=== PATIENT | male | born 1945 | race Caucasian/White ===

== ENCOUNTER 2016-11-24 09:25 | Emergency (ER) | payer MEDICARE, OTHER | END 2016-11-24 10:48 | disposition home or self-care (01) | DX: S61.211A Laceration without foreign body of left index finger without damage to nail, initial encounter (principal); W26.0XXA Contact with knife, initial encounter; Y92.019 Unspecified place in single-family (private) house as the place of occurrence of the external cause ==

== ENCOUNTER 2017-04-19 08:00 | Outpatient (CLI) | payer MEDICARE, OTHER ==
[2017-04-19 14:08] LABS: BASOPHILS % (AUTO) 0.6 %; EOSINOPHILS # (AUTO) 0.1 10^3/uL (0.0-0.7); EOSINOPHILS % (AUTO) 1.4 %; HCT - HEMATOCRIT 46.6 % (42.0-52.0); HGB - HEMOGLOBIN 15.8 g/dL (14.0-18.0); LYMPHOCYTES # (AUTO) 1.3 10^3/uL (1.5-3.5); LYMPHOCYTES % (AUTO) 25.4 %; MEAN CORPUSCULAR HEMOGLOBIN 31.9 pg (27.0-31.0); MEAN CORPUSCULAR HGB CONC 33.9 g/dL (32.0-36.0); MEAN CORPUSCULAR VOLUME 94.2 fL (80.0-94.0); MEAN PLATELET VOLUME 10.5 fL (7.4-11.4); MONOCYTES # (AUTO) 0.5 10^3/uL (0.0-1.0); NEUTROPHILS # (AUTO) 3.2 10^3/uL (1.5-6.6); NEUTROPHILS % (AUTO) 63.6 %; NUCLEATED RED BLOOD CELLS AUTO 0.1 /100WBC; RED BLOOD COUNT 4.95 10^6/uL (4.70-6.10); RED CELL DISTRIBUTION WIDTH 13.2 % (12.0-15.0)
[2017-04-19 14:22] LABS: HEMOGLOBIN A1C 0.67 g/dL
[2017-04-19 14:31] LABS: ALBUMIN/GLOBULIN RATIO 1.7 (1.0-2.2); BILIRUBIN,TOTAL 0.7 mg/dL (0.2-1.0); BUN - BLOOD UREA NITROGEN 16 mg/dL (6-20); CALCIUM 9.8 mg/dL (8.5-10.3); CARBON DIOXIDE - CO2 28 mmol/L (21-32); CHLORIDE 107 mmol/L (101-111); CHOL/HDL RATIO 4.5 (<5.0); CHOLESTEROL 178 mg/dL; GFR - MDRD 73 (>89); GLUCOSE 132 mg/dL (70-100); HDL CHOLESTEROL 40 mg/dL; LDL/HDL RATIO 2.5 (<3.6); SODIUM 139 mmol/L (135-145); TRIGLYCERIDES 185 mg/dL; URIC ACID 6.3 mg/dL (2.6-7.2); VLDL CHOLESTEROL 37 mg/dL
== END 2017-04-19 08:01 | disposition home or self-care (01) ==
LOC: LAB.N 08:00
PROVIDERS: ATTEND Internal Medicine
DX: R73.9 Hyperglycemia, unspecified (principal); I10 Essential (primary) hypertension; G62.9 Polyneuropathy, unspecified; M10.9 Gout, unspecified
CPT/HCPCS: 36415; 80053; 80061; 83036; 84550; 85025

== ENCOUNTER 2018-02-08 10:25 | Outpatient (CLI) | payer MEDICARE, OTHER ==
--- NOTE | 2018-02-08 10:38 | XRAY Report ---
Procedure Date: 02/08/2018 Accession Number: [id number] / [id number] Procedure: XR - Chest 2 View X-Ray CPT Code: 73161 FULL RESULT: EXAM: Chest 2 View X-Ray DATE: 02/08/2018 10:02 AM CLINICAL HISTORY: BACK PAIN COMPARISON: 03/27/2016 TECHNIQUE: 2 views. FINDINGS: Lungs/Pleura: The lungs remain hyperinflated, compatible with COPD. No focal consolidation, effusion, or pneumothorax. Mediastinum: Heart and mediastinal contours are unremarkable. Other: Rounded lucency posterior to the heart on the lateral view, which may represent a hiatal hernia. IMPRESSION: Stable hyperinflation. Possible hiatal hernia. RADIA
== END 2018-02-08 10:26 | disposition home or self-care (01) ==
LOC: DI 10:25
PROVIDERS: ATTEND Internal Medicine
DX: M54.9 Dorsalgia, unspecified (principal)
CPT/HCPCS: 71046

== ENCOUNTER 2018-05-18 07:49 | Outpatient (CLI) | payer MEDICARE, OTHER ==
[2018-05-18 12:52] LABS: HB2 TOTAL 16.7 g/dL; HEMOGLOBIN A1C 0.59 g/dL; HEMOGLOBIN A1C % 5.4 % (4.6-6.2)
[2018-05-18 12:58] LABS: ALBUMIN 3.7 g/dL (3.2-5.5); ALBUMIN/GLOBULIN RATIO 1.3 (1.0-2.2); BILIRUBIN,TOTAL 1.2 mg/dL (0.2-1.0); CALCIUM 9.5 mg/dL (8.5-10.3); CREATININE 0.9 mg/dL (0.6-1.2); TOTAL PROTEIN 6.6 g/dL (6.7-8.2); URIC ACID 6.6 mg/dL (2.6-7.2)
[2018-05-18 12:59] LABS: BASOPHILS % (AUTO) 0.7 %; EOSINOPHILS # (AUTO) 0.1 10^3/uL (0.0-0.7); HGB - HEMOGLOBIN 15.7 g/dL (14.0-18.0); LYMPHOCYTES # (AUTO) 1.4 10^3/uL (1.5-3.5); LYMPHOCYTES % (AUTO) 30.9 %; MEAN CORPUSCULAR HEMOGLOBIN 32.2 pg (27.0-31.0); MEAN CORPUSCULAR HGB CONC 33.9 g/dL (32.0-36.0); MEAN CORPUSCULAR VOLUME 95.1 fL (80.0-94.0); MEAN PLATELET VOLUME 10.4 fL (7.4-11.4); MONOCYTES # (AUTO) 0.4 10^3/uL (0.0-1.0); MONOCYTES % (AUTO) 9.4 %; NEUTROPHILS # (AUTO) 2.6 10^3/uL (1.5-6.6); PLT - PLATELET COUNT 173 10^3/uL (130-450); RED BLOOD COUNT 4.88 10^6/uL (4.70-6.10); RED CELL DISTRIBUTION WIDTH 13.2 % (12.0-15.0); WHITE BLOOD COUNT 4.6 x10^3/uL (4.8-10.8)
== END 2018-05-18 07:50 ==
LOC: LAB.N 07:49
PROVIDERS: ATTEND Internal Medicine
DX: R73.9 Hyperglycemia, unspecified (principal); Z12.5 Encounter for screening for malignant neoplasm of prostate; G62.9 Polyneuropathy, unspecified; I10 Essential (primary) hypertension; M10.9 Gout, unspecified
CPT/HCPCS: 36415; 80053; 83036; 84550; 85025; G0103; 84153

== ENCOUNTER 2019-04-05 08:00 | Outpatient (CLI) | payer MEDICARE, OTHER ==
[2019-04-05 12:29] LABS: ALBUMIN 4.1 g/dL (3.2-5.5); ALBUMIN/GLOBULIN RATIO 1.4 (1.0-2.2); ALKALINE PHOSPHATASE 59 IU/L (42-121); ALT ALANINE AMINOTRANSFERASE 34 IU/L (10-60); AST ASPARTATE AMINOTRANSFERASE 26 IU/L (10-42); BILIRUBIN,TOTAL 0.7 mg/dL (0.2-1.0); BUN - BLOOD UREA NITROGEN 13 mg/dL (6-20); CALCIUM 9.6 mg/dL (8.5-10.3); CARBON DIOXIDE - CO2 28 mmol/L (21-32); CHLORIDE 104 mmol/L (101-111); CHOL/HDL RATIO 4.3 (<5.0); CHOLESTEROL 186 mg/dL; CREATININE 0.9 mg/dL (0.6-1.2); GFR - MDRD 82 (>89); GLUCOSE 132 mg/dL (70-100); HDL CHOLESTEROL 43 mg/dL; LDL CHOLESTEROL,CALCULATED 116 mg/dL; LDL/HDL RATIO 2.7 (<3.6); SODIUM 139 mmol/L (135-145); TOTAL PROTEIN 7.1 g/dL (6.7-8.2); URIC ACID 6.5 mg/dL (2.6-7.2); VLDL CHOLESTEROL 27 mg/dL
[2019-04-05 12:32] LABS: BASOPHILS % (AUTO) 0.8 %; EOSINOPHILS # (AUTO) 0.1 10^3/uL (0.0-0.7); EOSINOPHILS % (AUTO) 1.8 %; HGB - HEMOGLOBIN 15.7 g/dL (14.0-18.0); LYMPHOCYTES # (AUTO) 1.2 10^3/uL (1.5-3.5); LYMPHOCYTES % (AUTO) 24.5 %; MEAN CORPUSCULAR HEMOGLOBIN 30.7 pg (27.0-31.0); MEAN CORPUSCULAR HGB CONC 32.1 g/dL (32.0-36.0); MEAN CORPUSCULAR VOLUME 95.7 fL (80.0-94.0); MEAN PLATELET VOLUME 11.9 fL (7.4-11.4); MONOCYTES # (AUTO) 0.4 10^3/uL (0.0-1.0); MONOCYTES % (AUTO) 8.2 %; NEUTROPHILS # (AUTO) 3.2 10^3/uL (1.5-6.6); NEUTROPHILS % (AUTO) 64.3 %; PLT - PLATELET COUNT 193 10^3/uL (130-450); RED BLOOD COUNT 5.11 10^6/uL (4.70-6.10); RED CELL DISTRIBUTION WIDTH 12.7 % (12.0-15.0)
== END 2019-04-05 23:59 | disposition home or self-care (01) ==
LOC: LAB.N 08:00
PROVIDERS: ATTEND Family Medicine
DX: I10 Essential (primary) hypertension (principal); M10.9 Gout, unspecified
CPT/HCPCS: 36415; 80053; 80061; 83721; 84443; 84550; 85025

== ENCOUNTER 2019-08-02 13:18 | Emergency (ER) | payer MEDICARE, OTHER ==
[2019-08-02 13:33] VITALS: BP 160/85
[2019-08-02] MEDS ORDERED: predniSONE 20 MG TABLET PO STA (13:56)
[2019-08-02] MEDS ORDERED: valACYclovir 500 MG TABLET PO STA (13:56)
[2019-08-02] MEDS ORDERED: prednisoLONE 1% OPHTH DROPS 75 DROPS/5 ML BOTTLE RIGHTEYE STA (13:57)
[2019-08-02] MEDS ORDERED: HYDROcod/ACET 5/325 Prepack 4 PO STA (14:08)
--- NOTE | 2019-08-02 14:08 | ED Physician Documentation ---
PD HPI SKIN - Stated complaint Stated Complaint: RASH ON FACE - Chief complaint Chief Complaint: Wound - History obtained from History obtained from: Patient (2 days of right facial swelling and pain making difficulties to sleep with mild visual deficit. Seen in the office and put on antibiotics, looks more like shingles today to them. No fevers.) Review of Systems Constitutional: reports: Myalgias, Fatigue. denies: Fever, Chills Nose: reports: Rhinorrhea / runny nose. denies: Congestion Throat: denies: Sore throat PD PAST MEDICAL HISTORY - Past Surgical History Past Surgical History: Yes General: Appendectomy - Present Medications Home Medications: Ambulatory Orders Medication Instructions Recorded Confirmed allopurinoL [Aloprim] 0 mg PO DAILY 11/24/16 11/24/16 Hydrocodone/Acetaminophen 1 - 2 each PO Q6H PRN #14 tablet 08/02/19 [Hydrocodon-Acetaminophen 5-325] Valacyclovir HCl [Valtrex] 1,000 mg PO TID #30 tablet 08/02/19 predniSONE [Deltasone] 20 mg PO [id number] #21 tab 08/02/19 prednisoLONE 1% OPHTH DROPS [Pred 1 drops OPTH BID #1 bottle 08/02/19 Forte 1% Ophth Drops] - Allergies Allergies/Adverse Reactions: Allergies Allergy/AdvReac Type Severity Reaction Status Date / Time morphine Allergy Unknown Verified 08/02/19 13:34 - Social History Does the pt smoke?: No Smoking Status: Never smoker Does the pt have substance abuse?: No - Immunizations Immunizations are current?: Yes PD ED PE NORMAL - Vitals Vital signs reviewed: Yes - General General: Alert and oriented X 3, No acute distress - HEENT HEENT: Other (He has shingles across the right forehead with a small amount of fluorescein uptake superiorly in the right eye.) - Neck Neck: Supple, no meningeal sign, No bony TTP - Neuro Neuro: Alert and oriented X 3, Normal speech Results - Vitals Vitals: Vital Signs - 24 hr 08/02/19 13:30 Temperature 36.9 C Heart Rate 84 Respiratory 16 Rate Blood Pressure 160/85 H O2 Saturation 95 Oxygen O2 Source Room air PD MEDICAL DECISION MAKING - ED course ED course: He has herpes zoster ophthalmicus, the timing with today being [place] may make follow-up difficult. It looks like [facility] has hours tomorrow. Dr. Velazquez does not. Departure - Departure Disposition: 01 Home, Self Care Clinical Impression: Herpes zoster ophthalmicus of right eye Condition: Good Record reviewed to determine appropriate education?: Yes Instructions: ED Shingles Prescriptions: Hydrocodone/Acetaminophen [Hydrocodon-Acetaminophen 5-325] 1 - 2 each PO Q6H PRN #14 tablet PRN Reason: pain prednisoLONE 1% OPHTH DROPS [Pred Forte 1% Ophth Drops] 1 drops OPTH BID #1 bottle predniSONE [Deltasone] 20 mg PO [id number] #21 tab Valacyclovir HCl [Valtrex] 1,000 mg PO TID #30 tablet Comments: You should follow-up with an paper folder within 48 hours, one option would be [facility], they have an office [facility]. The phone number is [phone], their main office is in [place], the phone number is [phone]. Return immediately for worsening vision.
== END 2019-08-02 14:36 | disposition home or self-care (01) ==
LOC: ED 13:18
DX: B02.30 Zoster ocular disease, unspecified (principal)
CPT/HCPCS: 99282; 99284; A9270; J7512

== ENCOUNTER 2020-07-19 07:00 | Outpatient (CLI) | payer MEDICARE, OTHER ==
[2020-07-19 12:54] LABS: BASOPHILS % (AUTO) 0.5 %; EOSINOPHILS # (AUTO) 0.1 10^3/uL (0.0-0.7); EOSINOPHILS % (AUTO) 1.4 %; HGB - HEMOGLOBIN 16.3 g/dL (14.0-18.0); LYMPHOCYTES # (AUTO) 1.6 10^3/uL (1.5-3.5); LYMPHOCYTES % (AUTO) 27.7 %; MEAN CORPUSCULAR HEMOGLOBIN 31.5 pg (27.0-31.0); MEAN CORPUSCULAR HGB CONC 32.3 g/dL (32.0-36.0); MEAN CORPUSCULAR VOLUME 97.7 fL (80.0-94.0); MEAN PLATELET VOLUME 12.4 fL (7.4-11.4); MONOCYTES # (AUTO) 0.4 10^3/uL (0.0-1.0); MONOCYTES % (AUTO) 7.6 %; NEUTROPHILS # (AUTO) 3.6 10^3/uL (1.5-6.6); NEUTROPHILS % (AUTO) 62.5 %; PLT - PLATELET COUNT 198 10^3/uL (130-450); RED BLOOD COUNT 5.17 10^6/uL (4.70-6.10); RED CELL DISTRIBUTION WIDTH 12.6 % (12.0-15.0); WHITE BLOOD COUNT 5.8 x10^3/uL (4.8-10.8)
[2020-07-19 13:27] LABS: ALBUMIN 4.3 g/dL (3.2-5.5); ALBUMIN/GLOBULIN RATIO 1.4 (1.0-2.2); ALKALINE PHOSPHATASE 62 IU/L (42-121); ALT ALANINE AMINOTRANSFERASE 31 IU/L (10-60); AST ASPARTATE AMINOTRANSFERASE 24 IU/L (10-42); BILIRUBIN,TOTAL 1.1 mg/dL (0.2-1.0); BUN - BLOOD UREA NITROGEN 18 mg/dL (6-20); CALCIUM 10.1 mg/dL (8.5-10.3); CARBON DIOXIDE - CO2 25 mmol/L (21-32); CHLORIDE 106 mmol/L (101-111); CHOL/HDL RATIO 4.9 (<5.0); CHOLESTEROL 196 mg/dL; CREATININE 0.8 mg/dL (0.6-1.2); GLUCOSE 129 mg/dL (70-100); HDL CHOLESTEROL 40 mg/dL; LDL CHOLESTEROL,CALCULATED 110 mg/dL; LDL/HDL RATIO 2.8 (<3.6); SODIUM 142 mmol/L (135-145); TOTAL PROTEIN 7.3 g/dL (6.7-8.2); URIC ACID 6.3 mg/dL (2.6-7.2); VLDL CHOLESTEROL 46 mg/dL
[2020-07-19 13:37] LABS: HEMOGLOBIN A1c% 5.4 % (4.27-6.07)
== END 2020-07-19 23:59 | disposition home or self-care (01) ==
LOC: LAB.WCP 07:00
PROVIDERS: ATTEND Family Medicine
DX: I10 Essential (primary) hypertension (principal); M62.81 Muscle weakness (generalized); R27.9 Unspecified lack of coordination; R73.9 Hyperglycemia, unspecified; G62.9 Polyneuropathy, unspecified; K21.9 Gastro-esophageal reflux disease without esophagitis; M10.9 Gout, unspecified
CPT/HCPCS: 36415; 80053; 80061; 83036; 83721; 84550; 85025

== ENCOUNTER 2020-08-06 10:14 | Outpatient (CLI) | payer MEDICARE, OTHER ==
--- NOTE | 2020-08-06 14:49 | MRI Report ---
PROCEDURE: Lumbar Spine W/O INDICATIONS: BALANCE PROBLEM TECHNIQUE: Noncontrast sagittal T1 spin echo and T2 fast echo, sagittal STIR, axial T1 and T2 fast spin echo thr ough the lumbar spine. In cases with scoliosis, additional coronal T2 fast spin echo may be performe d. COMPARISON: None. FINDINGS: Image quality: Excellent. Alignment and Curvature: No plain films are available for comparison. Thus, for numbering purposes, 5 lumbar type vertebral bodies will be presumed for the current report. This should be confirmed with plain film correlation prior to any lumbar spinal intervention. Minimal grade 1 retrolisthesis of L2 on L3 and L3 on L4. . Bone Marrow: Marrow is of normal overall signal. No acute vertebral body compression fractures. Mo derate reactive signal within the end plates adjacent to the L4-L5 intervertebral disc. Mild reactive signal within the endplates adjacent to the L1-L2, L2-L3, L3-L4, and L5-S1 intervertebral discs. Spinal Cord: Conus medullaris terminates at the mid L1 level. Visualized cord demonstrates normal s ignal and size. Paraspinous Soft Tissues: No paravertebral masses. T12-L1: Moderate disc desiccation. No significant canal, nor foraminal stenosis. L1-L2: Moderate disc height loss and desiccation. Mild diffuse disc bulge. Mild bilateral facet hy pertrophy. No significant canal, nor foraminal stenosis. L2-L3: Moderate disc height loss and desiccation. Mild diffuse disc bulge. Mild facet and ligament flavum hypertrophy. Mild canal stenosis. Mild bilateral foraminal stenosis. L3-L4: Mild disc height loss. Moderate disc desiccation. Mild diffuse disc bulge. Mild facet and li gament flavum hypertrophy. Mild epidural lipomatosis. Mild canal stenosis. Moderate bilateral foramin al stenosis. L4-L5: Moderate disc height loss and desiccation. Mild diffuse disc bulge. Mild facet and ligament flavum hypertrophy. Mild canal stenosis. Moderate left and severe right foraminal stenosis. Right L4 nerve root compression. L5-S1: Severe disc height loss and desiccation. Mild diffuse disc bulge. Mild facet and ligament fl avum hypertrophy. Mild canal stenosis. Moderate right and mild left foraminal stenosis. IMPRESSION: 1. Multilevel degenerative disc and facet disease, in addition to epidural lipomatosis and ligamentum flavum hypertrophy. 2. Mild multilevel canal stenoses. 3. Multilevel foraminal stenoses, worst at L4-L5 where there is associated intraforaminal nerve root compression. Recommend correlation with clinical symptoms to ascertain relevance of this finding. Reviewed by: Isadora Crowell MD on 08/06/2020 2:48 PM PST Approved by: Isadora Crowell MD on 08/06/2020 2:48 PM PST Station ID: [id number]
== END 2020-08-06 10:15 | disposition home or self-care (01) ==
LOC: DI 10:14
PROVIDERS: ATTEND Family Medicine
DX: E88.2 Lipomatosis, not elsewhere classified (principal); M47.816 Spondylosis without myelopathy or radiculopathy, lumbar region; M47.817 Spondylosis without myelopathy or radiculopathy, lumbosacral region; M51.36 Other intervertebral disc degeneration, lumbar region; M48.061 Spinal stenosis, lumbar region without neurogenic claudication; M51.37 Other intervertebral disc degeneration, lumbosacral region; M48.07 Spinal stenosis, lumbosacral region
CPT/HCPCS: 72148

== ENCOUNTER 2020-09-17 08:00 | Outpatient (CLI) | payer MEDICARE, OTHER ==
[2020-09-17 19:06] LABS: CRP - C-REACTIVE PROTEIN 4.2 mg/dL (0-1.0)
[2020-09-19 09:41] LABS: ANA SCREEN NEGATIVE (NEGATIVE)
== END 2020-09-17 23:59 | disposition home or self-care (01) ==
LOC: LAB.WCP 08:00
PROVIDERS: ATTEND Physical Medicine & Rehabilitation
DX: R53.1 Weakness (principal)
CPT/HCPCS: 36415; 81599; 82550; 85651; 86038; 86140

== ENCOUNTER 2020-10-03 17:15 | Outpatient (CLI) | payer MEDICARE, OTHER ==
--- NOTE | 2020-10-04 08:39 | MRI Report ---
PROCEDURE: Brain W/O INDICATIONS: Bilateral lower extremity weakness TECHNIQUE: Noncontrast axial T1 spin echo, axial T2 fast spin echo, sagittal and axial FLAIR, coronal T2 fast sp in echo, axial gradient echo, axial diffusion and ADC through the brain. COMPARISON: None. FINDINGS: Image quality: Excellent. CSF Spaces: Basal cisterns are patent. No extra-axial fluid collections. Ventricles are normal in size and shape. Brain: Advanced global cerebral volume loss and moderate to severe chronic microvascular ischemic jahaira nges. No evidence of vasogenic edema. No restricted diffusion or abnormal intracranial susceptibility . The major intracranial vascular flow-related signal voids are maintained. Midline structures are no rmal in configuration. Skull and face: Calvarium has normal marrow signal. Orbits appear normal. Sinuses: Centered in the left posterior ethmoid air cells there is an approximately 1.7 x 1.9 cm lesi on which most likely represents either a mucous retention cyst or mucocele, although this is not enti rely definitive. IMPRESSION: No acute intracranial finding. Advanced global cerebral volume loss and [id number] chronic vascular ischemic changes. Indeterminate lesion in the left posterior ethmoid air cells, likely mucocele or mucous retention cys t although further evaluation with CT sinuses is recommended. Reviewed by: Nolan Medina MD on 10/04/2020 8:38 AM [facility] Approved by: Nolan Medina MD on 10/04/2020 8:38 AM PST Station ID: [id number]
--- NOTE | 2020-10-04 11:33 | MRI Report ---
PROCEDURE: Cervical Spine W/O INDICATIONS: Bilateral lower extremity weakness TECHNIQUE: Noncontrast sagittal T1 spin echo and T2 fast spin echo, sagittal STIR, foraminal oblique sagittal T2 fast spin echo, and axial gradient echo or T2 fast spin echo through the cervical spine. COMPARISON: None. FINDINGS: Image quality: Excellent. Alignment and Curvature: Normal cervical spine vertebral body height and alignment. Bone Marrow: Modic type II degenerative endplate change at C6-C7. Otherwise normal marrow signal inte nsity. Spinal Cord: Visualized spinal cord has normal size and signal. No cerebellar tonsillar herniation. Paraspinous Soft Tissues: No paravertebral masses. Prevertebral soft tissues are normal in thicknes s. C2-C3: No spinal canal or neural foraminal stenosis. There is mild uncovertebral spurring and facet hypertrophy on the left. C3-C4: No spinal canal stenosis. Facet and uncovertebral hypertrophy contribute to mild neural fora jose narrowing on the left. C4-C5: No spinal canal stenosis. Facet and uncovertebral hypertrophy contribute to moderate left and mild right neural foraminal stenosis. C5-C6: No spinal canal stenosis. Facet and uncovertebral hypertrophy contribute to severe left and m ild right neural foraminal narrowing. C6-C7: No spinal canal stenosis. Facet and uncovertebral hypertrophy contribute to severe left and m oderate right neural foraminal stenosis. C7-T1: No spinal canal stenosis. Facet and uncovertebral hypertrophic degenerative moderate neural f oraminal narrowing on the left. IMPRESSION: Varying degrees of neural foraminal stenosis from C3-C4 through C7-T1, worst on the left at each leve l, severe on the left at both C5-C6 and C6-C7. Reviewed by: Nolan Medina MD on 10/04/2020 11:32 AM PST Approved by: Nolan Medina MD on 10/04/2020 11:32 AM PST Station ID: [id number]
--- NOTE | 2020-10-04 13:08 | MRI Report ---
PROCEDURE: Thoracic Spine W/O INDICATIONS: Bilateral lower extremity weakness TECHNIQUE: Noncontrast sagittal T1 spine echo and T2 fast spin echo, sagittal STIR, axial T1 and T2 fast spin ec ho through the thoracic spine. COMPARISON: 05/10/2013 MRI thoracic spine FINDINGS: Image quality: Excellent. Alignment and Curvature: There is normal bony alignment. Vertebral body heights are maintained. Bone Marrow: No suspicious focal marrow signal abnormality or significant bone marrow edema. Spinal Cord: Visualized spinal cord is normal in size and signal. Regional Soft Tissues: No paravertebral masses. Miscellaneous: On axial images, central canal and foramina appear widely patent at all scanned level s. IMPRESSION: No important degenerative change or other significant abnormality. Reviewed by: Nolan Medina MD on 10/04/2020 1:07 PM PST Approved by: Nolan Medina MD on 10/04/2020 1:07 PM [facility] Station ID: [id number]
== END 2020-10-03 17:16 | disposition home or self-care (01) ==
LOC: DI 17:15
PROVIDERS: ATTEND Physical Medicine & Rehabilitation
DX: R29.898 Other symptoms and signs involving the musculoskeletal system (principal); M48.02 Spinal stenosis, cervical region

== ENCOUNTER 2020-10-21 07:00 | Outpatient (CLI) | payer MEDICARE, OTHER ==
[2020-10-21 19:00] LABS: THYROID STIMULATING HORMONE 3.38 uIU/mL (0.34-5.60)
[2020-10-21 19:01] LABS: FREE T3 3.05 pg/mL (2.5-3.9)
[2020-10-21 19:02] LABS: FREE T4 (FREE THYROXINE) 0.84 ng/dL (0.58-1.64)
== END 2020-10-21 23:59 | disposition home or self-care (01) ==
LOC: LAB.WCP 07:00
PROVIDERS: ATTEND Family Medicine
DX: M62.81 Muscle weakness (generalized) (principal)
CPT/HCPCS: 36415; 84439; 84443; 84481

== ENCOUNTER 2021-06-20 08:00 | Outpatient (CLI) | payer MEDICARE, OTHER ==
[2021-06-20 12:27] LABS: BASOPHILS % (AUTO) 0.5 %; EOSINOPHILS # (AUTO) 0.1 10^3/uL (0.0-0.7); EOSINOPHILS % (AUTO) 0.6 %; HCT - HEMATOCRIT 49.3 % (42.0-52.0); HGB - HEMOGLOBIN 16.1 g/dL (14.0-18.0); LYMPHOCYTES # (AUTO) 1.3 10^3/uL (1.5-3.5); LYMPHOCYTES % (AUTO) 14.5 %; MEAN CORPUSCULAR HEMOGLOBIN 31.1 pg (27.0-31.0); MEAN CORPUSCULAR HGB CONC 32.7 g/dL (32.0-36.0); MEAN CORPUSCULAR VOLUME 95.2 fL (80.0-94.0); MEAN PLATELET VOLUME 12.3 fL (7.4-11.4); MONOCYTES # (AUTO) 0.8 10^3/uL (0.0-1.0); MONOCYTES % (AUTO) 8.8 %; NEUTROPHILS # (AUTO) 6.5 10^3/uL (1.5-6.6); NEUTROPHILS % (AUTO) 75.3 %; PLT - PLATELET COUNT 190 10^3/uL (130-450); RED BLOOD COUNT 5.18 10^6/uL (4.70-6.10); RED CELL DISTRIBUTION WIDTH 13.1 % (12.0-15.0); WHITE BLOOD COUNT 8.7 x10^3/uL (4.8-10.8)
== END 2021-06-20 23:59 | disposition home or self-care (01) ==
LOC: LAB.N 08:00
PROVIDERS: ATTEND Physician Assistant Medical
DX: K92.1 Melena (principal)
CPT/HCPCS: 36415; 85025

== ENCOUNTER 2021-07-30 12:24 | Day surgery (SDC) | payer MEDICARE, OTHER ==
[2021-07-30] MEDS ORDERED: PROPOFOL 500 MG/50 ML 500 MG/50 ML VIAL ONE (12:51)
[2021-07-30] MEDS ORDERED: LACTATED RINGERS 1,000 ML IV ONE (13:09)
--- NOTE | 2021-07-30 13:43 | ANESTHESIA ---
Pre-Anesthesia VS, & Labs - Diagnosis screening - Procedure colonoscopy Vital Signs: Temp Pulse Resp BP Pulse Ox 36 C L 84 17 147/93 H 99 07/30/21 12:39 07/30/21 12:39 07/30/21 12:39 07/30/21 12:39 07/30/21 12:39 Height: 6 ft 2 in Weight (kg): 101 kg Body Mass Index: 28.5 BMI Classification: Overweight - NPO >8 hours - Lab Results Lab results reviewed: Yes Home Medications and Allergies Home Medications: Ambulatory Orders Amlodipine Besylate [Norvasc] 2.5 mg PO DAILY 07/29/21 Losartan [Cozaar] 50 mg PO DAILY 07/29/21 allopurinoL [Allopurinol] 150 mg PO DAILY 07/29/21 Amlodipine Besylate [Norvasc] 2.5 mg PO DAILY 07/29/21 Losartan [Cozaar] 50 mg PO DAILY 07/29/21 allopurinoL [Allopurinol] 150 mg PO DAILY 07/29/21 Allergies/Adverse Reactions: Allergies Allergy/AdvReac Type Severity Reaction Status Date / Time morphine Allergy Unknown Verified 08/02/19 13:34 Anes History & Medical History - Anesthetic History Anesthesia Complications: reports: No previous complications Family history of Anesthesia Complications: Denies Family history of Malignant Hyperthermia: Denies - Medical History Cardiovascular: reports: Hypertension Pulmonary: reports: None Gastrointestinal: reports: GERD, Colon polyps, Other Urinary: reports: Benign prostate hypertrophy Musculoskeletal: reports: Osteoarthritis Endocrine/Autoimmune: reports: None Skin: reports: None Smoking Status: Never smoker - Surgical History General: reports: Appendectomy, Colonoscopy Orthopedic: reports: Arthroscopic surgery Exam General: Alert, Oriented x3, Cooperative, No acute distress Dental: WNL Mouth Openin Fingerbreadth Neck Mobility: Normal Mallampati classification: II Respiratory: Lungs clear, Normal breath sounds, No respiratory distress, No accessory muscle use Cardiovascular: Regular rate, Normal S1, Normal S2, No murmurs Plan Anesthesia Type: General, Total IV Consent for Procedure(s) Verified and Reviewed: Yes Code Status: Attempt Resuscitation ASA classification: 2-Mild systemic disease Is this case an emergency?: No
[2021-07-30] MEDS ORDERED: LACTATED RINGERS 500 ML IV ONE (14:24)
[2021-07-30 14:47] VITALS: BP 139/72
--- NOTE | 2021-07-30 18:16 | ANESTHESIA POST OP EVALUATION ---
Anesthesia Post Eval - Post Anesthesia Eval Vitals: Last Vital Signs Temp 36.2 C L 07/30/21 14:46 Pulse 51 L 07/30/21 14:46 Resp 18 07/30/21 14:46 BP 139/72 H 07/30/21 14:46 Pulse Ox 98 07/30/21 14:46 CV Function Including HR & BP: Stable Pain Control: Satisfactory Nausea & Vomiting: Negative Mental Status: Baseline Respiratory Status: Airway Patent Hydration Status: Satisfactory Anesthesia Complications: None
== END 2021-07-30 12:25 | disposition home or self-care (01) ==
LOC: SDS 12:24
PROVIDERS: ATTEND Surgery
DX: Z12.11 Encounter for screening for malignant neoplasm of colon (principal); K57.30 Diverticulosis of large intestine without perforation or abscess without bleeding; Z86.010 Personal history of colon polyps; N40.0 Benign prostatic hyperplasia without lower urinary tract symptoms; R27.9 Unspecified lack of coordination
CPT/HCPCS: G0105; J7120

== ENCOUNTER 2021-09-17 15:45 | Emergency (ER) | payer MEDICARE, OTHER ==
--- NOTE | 2021-09-17 16:39 | Ultrasound Report ---
PROCEDURE: Duplex Ext Veins Left INDICATIONS: swellign in calf; hx of varicose vein; r/o DVT TECHNIQUE: Real-time imaging, as well as color and pulse Doppler interrogation, were performed of the lower extr emity deep veins from the inguinal ligament to the popliteal fossa. COMPARISON: None. FINDINGS: The deep veins are normally compressible, and free of intraluminal thrombus. Color and pu lse Doppler demonstrate normal phasic intraluminal flow. There is normal augmentation response to di stal compression maneuver. IMPRESSION: No evidence of DVT in visualized left lower extremity veins. Left calf edema. Reviewed by: Diego Rivero MD on 09/17/2021 4:38 PM PST Approved by: Diego Rivero MD on 09/17/2021 4:38 PM PST Station ID: [id number]
--- NOTE | 2021-09-17 16:45 | ED Physician Documentation ---
History of Present Illness - Stated complaint Stated Complaint: LT CALF SWOLLEN - Chief complaint Chief Complaint: Ext Problem - Additonal information Additional information: 76-year-old male presents emergency department for evaluation of 2 days left lower leg swelling. He does have significant varicose veins. No recent surgeries or immobilizations. He is not anticoagulated. No history of unilateral leg swelling. No history of congestive heart failure. Review of Systems Constitutional: reports: Reviewed and negative Ears: reports: Reviewed and negative Nose: reports: Reviewed and negative Cardiac: reports: Reviewed and negative Respiratory: reports: Reviewed and negative Skin: reports: Reviewed and negative Musculoskeletal: reports: Extremity swelling Neurologic: reports: Reviewed and negative PD PAST MEDICAL HISTORY - Past Medical History Cardiovascular: Hypertension Respiratory: None Endocrine/Autoimmune: None GI: GERD, Colon polyps, Other : Benign prostate hypertrophy HEENT: Chronic vision loss, Chronic hearing loss Psych: None Musculoskeletal: Osteoarthritis Derm: None - Past Surgical History Past Surgical History: Yes General: Appendectomy, Colonoscopy Ortho: Arthroscopic surgery - Present Medications Home Medications: Ambulatory Orders Medication Instructions Recorded Confirmed Amlodipine Besylate [Norvasc] 2.5 mg PO DAILY 07/29/21 07/29/21 Losartan [Cozaar] 50 mg PO DAILY 07/29/21 07/29/21 allopurinoL [Allopurinol] 150 mg PO DAILY 07/29/21 07/29/21 - Allergies Allergies/Adverse Reactions: Allergies Allergy/AdvReac Type Severity Reaction Status Date / Time morphine Allergy Unknown Verified 09/17/21 15:59 - Social History Does the pt smoke?: No Smoking Status: Never smoker Does the pt have substance abuse?: No - Immunizations Immunizations are current?: Yes PD ED PE EXPANDED - General General: Alert, No acute distress, Well developed/nourished - Cardiac Cardiac: Regular Rate, Radial strong equal, Pedal strong equal. No: Murmur Present - Respiratory Respiratory: Clear to ausultation chiquita. No: Distress, Labored - Abdomen Abdomen: Normal Bowel sounds. No: Tender to palpation - Extremities Extremities: Pedal edema L, Pedal Pulses Present, Other (Mild nonpitting edema noted to the left lower leg. Both legs have peripheral vascular disease and hemosiderin staining. 2+ DP pulse bilaterally. No posterior calf pain tenderness elicited.). No: Deformity, Tenderness, Right calf TTP/cord, Left calf TTP/cord Results - Vitals Vitals: Vital Signs - 24 hr 09/17/21 15:53 Temperature 36.1 C L Heart Rate 72 Respiratory 16 Rate Blood Pressure 170/87 H O2 Saturation 96 Oxygen O2 Source Room air PD MEDICAL DECISION MAKING - ED course Complexity details: reviewed results, considered differential, d/w patient ED course: Well-appearing 76-year-old male presents emergency department for evaluation of 2 days left lower leg swelling. There is no calf pain. No history of DVT or cancer. Not anticoagulated. Ultrasound was negative for deep vein thrombosis. This gentleman does have evidence of peripheral vascular disease as evidenced by hemosiderin staining. He also has a history of hypertension. In addition to this her significant varicose veins on both extremities. I suspect the cause of his legs swelling and edema is peripheral vascular disease and varicose veins. I did recommend that he wear medical grade stockings and elevate the leg at night. Follow-up closely with PCP. May benefit from initiation of low-dose diuretic and/or echocardiogram. Emergent return precautions otherwise discussed. Departure - Departure Disposition: 01 Home, Self Care Clinical Impression: Swelling of left lower extremity, PVD (peripheral vascular disease), Varicose veins of both legs with edema Condition: Stable Record reviewed to determine appropriate education?: Yes Instructions: ED PVD Follow-Up: Edmar Wiley MD [Provider Admit Priv/Credential] - Comments: You are seen today in the emergency department for swelling in the left lower leg. The ultrasound did not show a deep vein thrombus. As we discussed at the bedside the cause of your swelling is most likely peripheral vascular disease and the varicose veins. I do recommend that you wear medical grade compressive stockings when out of bed during the day and elevate your leg as much as you can at night. You would benefit from seeing Dr. Penn. He may want to consider starting you on a low-dose of water pill. He may also want to consider referring you for an outpatient echocardiogram however your heart and lungs sound normal.
[2021-09-17 16:51] VITALS: BP 154/87
== END 2021-09-17 16:51 | disposition home or self-care (01) ==
LOC: ED 15:45
DX: I83.893 Varicose veins of bilateral lower extremities with other complications (principal); R60.0 Localized edema; I73.9 Peripheral vascular disease, unspecified; I10 Essential (primary) hypertension
CPT/HCPCS: 99282; 99284

== ENCOUNTER 2022-09-17 07:15 | Outpatient (CLI) | payer MEDICARE, OTHER ==
[2022-09-17 11:44] LABS: BASOPHILS # (AUTO) 0.1 10^3/uL (0.0-0.1); BASOPHILS % (AUTO) 0.9 %; EOSINOPHILS # (AUTO) 0.2 10^3/uL (0.0-0.7); EOSINOPHILS % (AUTO) 3.1 %; HCT - HEMATOCRIT 49.1 % (42.0-52.0); HGB - HEMOGLOBIN 15.8 g/dL (14.0-18.0); LYMPHOCYTES # (AUTO) 1.4 10^3/uL (1.5-3.5); LYMPHOCYTES % (AUTO) 24.4 %; MEAN CORPUSCULAR HGB CONC 32.2 g/dL (32.0-36.0); MEAN CORPUSCULAR VOLUME 96.3 fL (80.0-94.0); MEAN PLATELET VOLUME 11.7 fL (7.4-11.4); MONOCYTES # (AUTO) 0.5 10^3/uL (0.0-1.0); NEUTROPHILS # (AUTO) 3.6 10^3/uL (1.5-6.6); NEUTROPHILS % (AUTO) 63.1 %; PLT - PLATELET COUNT 243 10^3/uL (130-450); WHITE BLOOD COUNT 5.8 x10^3/uL (4.8-10.8)
[2022-09-17 12:31] LABS: THYROID STIMULATING HORMONE 5.78 uIU/mL (0.34-5.60)
[2022-09-17 12:35] LABS: ALBUMIN 4.1 g/dL (3.2-5.5); ALBUMIN/GLOBULIN RATIO 1.3 (1.0-2.2); ALKALINE PHOSPHATASE 69 IU/L (42-121); ALT ALANINE AMINOTRANSFERASE 29 IU/L (10-60); AST ASPARTATE AMINOTRANSFERASE 24 IU/L (10-42); BILIRUBIN,TOTAL 0.9 mg/dL (0.2-1.0); BUN - BLOOD UREA NITROGEN 18 mg/dL (6-20); CARBON DIOXIDE - CO2 27 mmol/L (21-32); CHLORIDE 107 mmol/L (101-111); CHOL/HDL RATIO 4.4 (<5.0); CHOLESTEROL 181 mg/dL; CREATININE 0.9 mg/dL (0.6-1.2); GFR - MDRD 82 (>89); GLUCOSE 151 mg/dL (70-100); HDL CHOLESTEROL 41 mg/dL; LDL CHOLESTEROL,CALCULATED 112 mg/dL; LDL/HDL RATIO 2.7 (<3.6); POTASSIUM 4.3 mmol/L (3.5-5.0); SODIUM 142 mmol/L (135-145); TOTAL PROTEIN 7.3 g/dL (6.7-8.2); TRIGLYCERIDES 142 mg/dL; VLDL CHOLESTEROL 28 mg/dL
[2022-09-17 13:02] LABS: ESTIMATED AVERAGE GLUCOSE 126 mg/dL (70-100)
[2022-09-17 13:03] LABS: FREE T4 (FREE THYROXINE) 0.72 ng/dL (0.58-1.64)
== END 2022-09-17 07:16 | disposition home or self-care (01) ==
LOC: LAB.N 07:15
PROVIDERS: ATTEND Family Medicine
DX: I10 Essential (primary) hypertension (principal); N40.0 Benign prostatic hyperplasia without lower urinary tract symptoms; I83.10 Varicose veins of unspecified lower extremity with inflammation; M62.81 Muscle weakness (generalized); M48.061 Spinal stenosis, lumbar region without neurogenic claudication; R20.8 Other disturbances of skin sensation; K21.9 Gastro-esophageal reflux disease without esophagitis; R73.9 Hyperglycemia, unspecified
CPT/HCPCS: 36415; 80053; 80061; 83036; 83721; 84153; 84439; 84443; 85025

== ENCOUNTER 2023-09-09 07:47 | Outpatient (CLI) | payer MEDICARE, OTHER ==
[2023-09-09 12:11] LABS: ESTIMATED AVERAGE GLUCOSE 123 mg/dL (70-100); HEMOGLOBIN A1c% 5.9 % (4.27-6.07)
[2023-09-09 12:17] LABS: BASOPHILS % (AUTO) 0.6 %; EOSINOPHILS # (AUTO) 0.1 10^3/uL (0.0-0.7); EOSINOPHILS % (AUTO) 2.6 %; HCT - HEMATOCRIT 49.5 % (42.0-52.0); HGB - HEMOGLOBIN 15.9 g/dL (14.0-18.0); LYMPHOCYTES # (AUTO) 1.2 10^3/uL (1.5-3.5); LYMPHOCYTES % (AUTO) 23.7 %; MEAN CORPUSCULAR HEMOGLOBIN 31.1 pg (27.0-31.0); MEAN CORPUSCULAR HGB CONC 32.1 g/dL (32.0-36.0); MEAN CORPUSCULAR VOLUME 96.9 fL (80.0-94.0); MEAN PLATELET VOLUME 12.3 fL (7.4-11.4); MONOCYTES # (AUTO) 0.4 10^3/uL (0.0-1.0); NEUTROPHILS # (AUTO) 3.2 10^3/uL (1.5-6.6); NEUTROPHILS % (AUTO) 64.7 %; PLT - PLATELET COUNT 200 10^3/uL (130-450); RED BLOOD COUNT 5.11 10^6/uL (4.70-6.10); RED CELL DISTRIBUTION WIDTH 13.2 % (12.0-15.0)
[2023-09-09 12:32] LABS: ALBUMIN 4.2 g/dL (3.2-5.5); ALBUMIN/GLOBULIN RATIO 1.7 (1.0-2.2); ALKALINE PHOSPHATASE 60 IU/L (42-121); ALT ALANINE AMINOTRANSFERASE 30 IU/L (10-60); AST ASPARTATE AMINOTRANSFERASE 25 IU/L (10-42); BILIRUBIN,TOTAL 0.7 mg/dL (0.2-1.0); BUN - BLOOD UREA NITROGEN 19 mg/dL (6-20); CARBON DIOXIDE - CO2 29 mmol/L (21-32); CHLORIDE 108 mmol/L (101-111); CHOL/HDL RATIO 4.3 (<5.0); CHOLESTEROL 182 mg/dL; CREATININE 0.9 mg/dL (0.6-1.3); GFR - MDRD 81 (>89); GLUCOSE 137 mg/dL (74-104); HDL CHOLESTEROL 42 mg/dL; LDL CHOLESTEROL,CALCULATED 102 mg/dL; LDL/HDL RATIO 2.4 (<3.6); POTASSIUM 4.3 mmol/L (3.5-4.5); SODIUM 141 mmol/L (135-145); TOTAL PROTEIN 6.7 g/dL (6.4-8.9); TRIGLYCERIDES 190 mg/dL (48-352); URIC ACID 6.6 mg/dL (4.4-7.6); VLDL CHOLESTEROL 38 mg/dL
[2023-09-09 12:43] LABS: THYROID STIMULATING HORMONE 3.96 uIU/mL (0.34-5.60)
== END 2023-09-09 07:48 | disposition home or self-care (01) ==
LOC: LAB.N 07:47
PROVIDERS: ATTEND Family Medicine
DX: G62.81 Critical illness polyneuropathy (principal); R73.9 Hyperglycemia, unspecified; N40.0 Benign prostatic hyperplasia without lower urinary tract symptoms; I83.10 Varicose veins of unspecified lower extremity with inflammation; M62.81 Muscle weakness (generalized); M48.061 Spinal stenosis, lumbar region without neurogenic claudication; R26.81 Unsteadiness on feet; I10 Essential (primary) hypertension; K21.9 Gastro-esophageal reflux disease without esophagitis; M10.9 Gout, unspecified
CPT/HCPCS: 36415; 80053; 80061; 83036; 83721; 84153; 84443; 84550; 85025

== ENCOUNTER 2023-10-08 11:44 | Outpatient (CLI) | payer MEDICARE, OTHER ==
--- NOTE | 2023-10-08 17:29 | Ultrasound Report ---
PROCEDURE: Extremity Soft Tissue Limited INDICATIONS: BAKERS CYST LEFT KNEE TECHNIQUE: Real-time scanning was performed of the left knee, with image documentation. COMPARISON: None. FINDINGS: Focused ultrasound examination in posterior left knee at patient's reported area of pain s hows normal appearing popliteal vein. Tortuous superficial vein in posterior fossa is seen just super ior to the popliteal vein which corresponds to patient's reported area of pain. No intraluminal filli ng defects are seen. No popliteal cyst is noted. IMPRESSION: 1. No Rodgers's cyst is seen. 2. Tortuous superficial vein in posterior fossa superficial to the normal appearing popliteal vein. N o evidence of venous thrombosis. Reviewed by: Diego Rivero MD on 10/08/2023 5:27 PM PST Approved by: Diego Rivero MD on 10/08/2023 5:27 PM PST Station ID: [id number]
== END 2023-10-08 11:45 | disposition home or self-care (01) ==
LOC: DI 11:44
PROVIDERS: ATTEND Family Medicine
DX: M71.22 Synovial cyst of popliteal space [Baker], left knee (principal); I86.8 Varicose veins of other specified sites

== ENCOUNTER 2023-10-29 10:12 | Outpatient (CLI) | payer MEDICARE, OTHER ==
--- NOTE | 2023-10-29 13:56 | MRI Report ---
PROCEDURE: Knee LT WO INDICATIONS: L KNEE PAIN TECHNIQUE: Noncontrast sagittal PD fast spin echo and T2 fast spin echo with fat saturation, sagittal 3-D spoile d GE with fat saturation; coronal T1 spin echo and PD fast spin echo with fat saturation, and axial P D fast spin echo with fat saturation through the knee. COMPARISON: Left knee radiographs 09/09/2023 7 10/08/2023 FINDINGS: Image quality: Excellent. Anterior cruciate ligament: Intact. Posterior cruciate ligament: Intact. Medial collateral ligament: There is thickening of the proximal to mid medial collateral ligament wi thout acute stranding edema, suspicious for a remote prior grade 1-2 sprain. Lateral collateral ligament: Intact. Medial meniscus: There is nondisplaced horizontal oblique tearing at the posterior horn and body of the medial meniscus extending to the middle third of the femoral articular surface. Lateral meniscus: Mild free edge fibrillation versus shallow radial tearing of the body of the later al meniscus. Medial and lateral tendons: The semimembranosus tendon insertions appear intact. Visualized portion s of the pes anserinus tendons appear normal. The popliteus tendon appears intact. Iliotibial band appears normal. Anterior structures: The patellar tendon and the distal quadriceps tendon appear intact. No patellar subluxation. No femoral trochlear dysplasia or ventral trochlear prominence. No edema in the infra patellar fat pad. Bones: A circumscribed [id number] and [id number] lesion in the fibular head adjacent to the tibiofibular joint. There is adjacent linear signal abnormality and is suspicious for a nondispla praveen fracture. Mild edema within the proximal fibula. Medial femorotibial cartilage: Mild partial thickness cartilage thinning throughout the weightbearin g portion of the medial femorotibial compartment Lateral femorotibial cartilage: Focal high-grade cartilage loss at the posterior weightbearing porti on of the lateral tibial plateau, with suspected subchondral osteophyte formation. Patellofemoral cartilage: Full-thickness cartilage loss at the lateral femoral trochlea and trochlea r groove, as well as the median ridge and lateral facet of the patella with subchondral cystic change s. Soft tissues: There is a small joint effusion. Small linear filling defect posterior to the intercon dylar notch measures 7 x 4 x 1 mm (image 19 of series 3). There is a trace medial popliteal cyst. Mil d fatty infiltration of the proximal calf musculature. Varicose vein is partially visualized in the p osterior medial aspect of the lower leg. There is a tortuous appearance of the small saphenous vein a t the level of the tibiofibular joint that corresponds with the lesion on ultrasound from 10/08/2023. IMPRESSION: 1.Suspected nondisplaced intra-articular fracture at the fibular head with mild adjacent osseous ilgia a, which is located at the same level as a nonaggressive appearing osseous lesion. 2.Horizontal oblique tearing at the posterior horn and body of the medial meniscus extending to the m iddle third of the femoral articular surface. 3.Mild free edge fibrillation versus shallow radial tearing at the body lateral meniscus. 4.Remote prior grade 1-2 sprain of the midportion of the medial collateral ligament. 5.Full-thickness cartilage loss in the patellofemoral compartment laterally. Focal grade 3-4 cartilag e defect in the lateral femorotibial compartment. Grade 2 cartilage thinning is seen in the medial co mpartment. 6.Small joint effusion. A 7 mm linear filling defect is seen posterior to the intercondylar notch ashlee t may represent an intra-articular loose body. 7.Tortuous and varicose veins at the posterior to posteromedial aspect of the lower leg corresponding to the previously seen sonographic abnormality. Reviewed by: Franklin Forde MD on 10/29/2023 1:55 PM PDT Approved by: Franklin Forde MD on 10/29/2023 1:55 PM PDT Station ID: [id number]
== END 2023-10-29 10:13 | disposition home or self-care (01) ==
LOC: DI 10:12
PROVIDERS: ATTEND Registered Nurse
DX: S83.242A Other tear of medial meniscus, current injury, left knee, initial encounter (principal); R93.6 Abnormal findings on diagnostic imaging of limbs; S83.412D Sprain of medial collateral ligament of left knee, subsequent encounter; M22.42 Chondromalacia patellae, left knee; M25.462 Effusion, left knee; I83.92 Asymptomatic varicose veins of left lower extremity

== ENCOUNTER 2023-11-04 10:26 | Outpatient (CLI) | payer MEDICARE, OTHER ==
--- NOTE | 2023-11-04 16:44 | XRAY Report ---
PROCEDURE: Knee 2 View LT INDICATIONS: LEFT KNEE PAIN TECHNIQUE: 2 views of the knee(s) were acquired. COMPARISON: MRI left knee, 10/29/2023. X-ray left knee, 09/09/2023. FINDINGS: Bones: There is minimal joint space narrowing with weightbearing. There is chondrocalcinosis. Soft tissues: No suspicious soft tissue calcifications or masses. IMPRESSION: 1. No acute bony abnormality. 2. Mild osteoarthritic changes. 3. Chondrocalcinosis. Etiologies may be hyperthyroidism and CPPD. Reviewed by: Dominic Baum MD on 11/04/2023 4:43 PM PDT Approved by: Dominic Baum MD on 11/04/2023 4:43 PM PDT Station ID: [id number]
== END 2023-11-04 23:59 | disposition home or self-care (01) ==
LOC: DI.WOS 10:26
PROVIDERS: ATTEND Physician Assistant Surgical
DX: M17.12 Unilateral primary osteoarthritis, left knee (principal); M11.262 Other chondrocalcinosis, left knee